=== PATIENT | female | born 1990 | race Two or more races ===

== ENCOUNTER → 2023-07-26 | Day surgery (SDC) | payer OTHER ==
[~2023-07-26] MED LIST: CABERGOLINE0.5 MG PO; POVIDONE-IODINE 118 ML BOTT TOP ONE
== END | disposition home or self-care (01) ==
LOC: ADM 07-19 11:00 → CIR.AMB 05:05
PROVIDERS: ATTEND Obstetrics & Gynecology Gynecology
DX: N92.0 Excessive and frequent menstruation with regular cycle (principal); N84.0 Polyp of corpus uteri; N72 Inflammatory disease of cervix uteri